=== PATIENT | female | born 1945 | race Caucasian/White ===

== ENCOUNTER 2023-05-10 10:42 | Emergency (ER) | payer MEDICARE ==
[~2023-05-10] VITALS: Ht 157.5 cm; Wt 85.3 kg
[2023-05-10 11:16] LABS: URINE BILIRUBIN - DIPSTICK Negative (NEGATIVE); URINE BLOOD DIPSTICK Large (NEGATIVE); URINE GLUCOSE - DIPSTICK Negative (NEGATIVE); URINE KETONE Negative (NEGATIVE); URINE NITRITE - DIPSTICK Negative (Negative); URINE PROTEIN - DIPSTICK 30 mg/dL (NEG-TRACE); URINE SPECIFIC GRAVITY 1.015; URINE UROBILINOGEN - DIPSTICK 0.2 E.U./dL (0.2)
[2023-05-10 11:20] LABS: URINE COLOR Yellow; URINE LEUK ESTERASE Large (NEGATIVE)
[2023-05-10 11:22] LABS: URINE WBC 50-100 WBC/hpf (0-5)
[2023-05-10] MEDS ORDERED: ELIQUIS5 MG PO (11:22)
[2023-05-10 11:24] LABS: URINE BACTERIA MODERATE hpf; URINE SQUAMOUS EPITHELIAL CELL FEW EPI/hpf (0-FEW)
[2023-05-10 11:38] VITALS: BP 188/86
[2023-05-10 12:07] VITALS: BP 188/86
[2023-05-10] MEDS ORDERED: NITROFURANTN100 MG PO (12:09)
[2023-05-10] MEDS ORDERED: PHENAZOPYRIDIN100 M1 PO (12:09)
== END 2023-05-10 12:21 | disposition home or self-care (01) ==
LOC: ED 10:42
PROVIDERS: Emergency Medicine
DX: N39.0 Urinary tract infection, site not specified (principal); B96.20 Unspecified Escherichia coli [E. coli] as the cause of diseases classified elsewhere; I10 Essential (primary) hypertension; E78.5 Hyperlipidemia, unspecified; I48.91 Unspecified atrial fibrillation